=== PATIENT | female | born 1940 | race Caucasian/White ===

== ENCOUNTER 2017-05-01 20:20 | Emergency (ER) | payer MEDICARE, MEDICAID ==
[~2017-05-01] VITALS: Ht 162.6 cm; Wt 72.6 kg
[2017-05-01] MEDS ORDERED: PHEN100C11 (20:31)
[2017-05-01] MEDS ORDERED: BUDE10.2 (20:31)
[2017-05-01] MEDS ORDERED: METO-333 (20:31)
[2017-05-01] MEDS ORDERED: HYDR200T46 (20:31)
[2017-05-01] MEDS ORDERED: FAMO20TA5 (20:31)
[2017-05-01] MEDS ORDERED: FLUT16SP22 (20:31)
[2017-05-01] MEDS ORDERED: TIOT18CA2 (20:31)
[2017-05-01] MEDS ORDERED: CLON0.5T3 (20:31)
[2017-05-01] MEDS ORDERED: CITA20TA7 (20:31)
[2017-05-01] MEDS ORDERED: BUSP10TA95 (20:31)
[2017-05-01] MEDS ORDERED: METH2.5T (20:31)
--- NOTE | 2017-05-01 20:39 | ED Fall/Injury ---
General Chief Complaint: Trauma-Non Activation Stated Complaint: FALL Nursing Triage Note: FALL Source: patient, RN/MD (Leonie at [facility] [place]) Exam Limitations: no limitations History of Present Illness Time seen by provider: 20:39 Location Injury Occurred: HOME Allergies and Home Medications Home Medications Budesonide/Formoterol Fumarate 10.2 Gm Hfa.aer.ad, (Reported) Buspirone HCl 10 Mg Tablet, (Reported) Citalopram Hydrobromide 20 Mg Tablet, (Reported) Clonazepam 0.5 Mg Tablet, (Reported) Famotidine 20 Mg Tablet, (Reported) Fluticasone Propionate 16 Gm Durant.susp, (Reported) Hydroxychloroquine Sulfate 200 Mg Tablet, (Reported) Methotrexate Sodium 2.5 Mg Tablet, (Reported) Metoprolol Tartrate 25 Mg Tablet, (Reported) Phenytoin Sodium Extended 100 Mg Capsule, (Reported) Tiotropium [place] 1 Inh Aerp, (Reported) Past Bxfumlc-Tsbxma-Dzwgti Hx Patient Social History Alcohol Use: Denies Use Recreational Drug Use: No Smoking Status: Unknown if Ever Smoked 2nd Hand Smoke Exposure: No Recent Foreign Travel: No Contact w/Someone Who Travel: No Recent Infectious Disease Expo: No Recent Hopitalizations: No Immunizations Up To Date Tetanus Booster (TDap): Less than 5yrs Seasonal Allergies Seasonal Allergies: Yes Surgeries History of Surgeries: No (UNKNOWN) Respiratory History of Respiratory Disorde: Yes Respiratory Disorders: Asthma, COPD Cardiovascular History of Cardiac Disorders: Yes Cardiac Disorders: Hypertension Neurological History of Neurological Disord: Yes Genitourinary History of Genitourinary Disor: No Gastrointestinal History of Gastrointestinal Di: Yes Gastrointestinal Disorders: Gastroesophageal Reflux, Chronic Constipation Musculoskeletal History of Musculoskeletal Dis: Yes Musculoskeletal Disorders: Osteoporosis, Arthritis, Scoliosis Endocrine History of Endocrine Disorders: No HEENT History of HEENT Disorders: No Cancer History of Cancer: No Psychosocial History of Psychiatric Problem: Yes Behavioral Health Disorders: Anxiety, Depression Integumentary Skin/Integumentary Disorders: Psoriasis Physical Exam Vital Signs Vital Sign - Last 12Hours 05/01/17 20:32 Temp 98.1 Pulse 73 Resp 18 B/P (MAP) 129/84 Pulse Ox 94 O2 Delivery Nasal Cannula O2 Flow Rate 2.00 Capillary Refill : Less Than 3 Seconds Progress/Results/Core Measures Results/Orders My Orders Orders - NAMAN MALLORY Ct Head Wo (05/01/17 20:25) Vital Signs/I&O Vital Sign - Last 12Hours 05/01/17 20:32 Temp 98.1 Pulse 73 Resp 18 B/P (MAP) 129/84 Pulse Ox 94 O2 Delivery Nasal Cannula O2 Flow Rate 2.00 Blood Pressure Mean: 99 Diagnostic Imaging Diagonstic Imaging: CT Plain Films/CT/US/NM/MRI: head Comments CT HEAD WO PROCEDURE: CT head without contrast. TECHNIQUE: Multiple contiguous axial images were obtained through the brain without the use of intravenous contrast. INDICATION: Fall. Head injury. COMPARISON: None. FINDINGS: No intracranial hemorrhage, mass effect, hydrocephalus, or extra-axial fluid collections. Sdzophsx-xs-orsknnss generalized cerebral and cerebellar parenchymal volume loss. Chronic encephalomalacia in the right frontal and anterior temporal lobes. 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 No CT evidence of acute infarction. Right temporal craniotomy. No acute fractures. Mild mucosal thickening in the ethmoid sinuses. The mastoids are clear. IMPRESSION: No acute intracranial CT findings. Dictated on workstation # [id number] Reviewed: Reviewed by Me (radiology report reviewed by me) Departure Impression Impression: Primary Impression: Fall Disposition: 01 HOME, SELF-CARE Condition: Improved Departure-Patient Inst. Decision time for Depature: 21:22 Referrals: MARTINA CHAUDHRY MD Patient Instructions: Preventing Falls in the Older Adult Add. Discharge Instructions: All discharge instructions reviewed with patient and/or family. Voiced understanding. Continue usual home medications, diet, and activity. Ice pack for 20 minute intervals as needed for pain. I will see patient in one week for follow-up as an outpatient. Return to the emergency department immediately for worsened pain, changes in behavior, slurred speech, changes in vision, neck pain , back pain, numbness, weakness, chest pain, shortness of air, or any other concerns. NAMAN MALLORY May 01, 2017 20:39
--- NOTE | 2017-05-01 20:53 | Diagnostic Imaging Report ---
PROCEDURE: CT head without contrast. TECHNIQUE: Multiple contiguous axial images were obtained through the brain without the use of intravenous contrast. INDICATION: Fall. Head injury. COMPARISON: None. FINDINGS: No intracranial hemorrhage, mass effect, hydrocephalus, or extra-axial fluid collections. Ufoiqoea-ln-rzzrvuip generalized cerebral and cerebellar parenchymal volume loss. Chronic encephalomalacia in the right frontal and anterior temporal lobes. 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 No CT evidence of acute infarction. Right temporal craniotomy. No acute fractures. Mild mucosal thickening in the ethmoid sinuses. The mastoids are clear. IMPRESSION: No acute intracranial CT findings. Dictated by: Dictated on workstation # [id number]
[2017-05-01 22:15] VITALS: BP 121/78
== END 2017-05-01 22:15 | disposition home or self-care (01) ==
LOC: ER 20:25
DX: S09.90XA Unspecified injury of head, initial encounter (principal); F41.9 Anxiety disorder, unspecified; F32.9 Major depressive disorder, single episode, unspecified; K21.9 Gastro-esophageal reflux disease without esophagitis; K59.09 Other constipation; J44.9 Chronic obstructive pulmonary disease, unspecified; W19.XXXA Unspecified fall, initial encounter; Y92.009 Unspecified place in unspecified non-institutional (private) residence as the place of occurrence of the external cause
CPT/HCPCS: 70450; 99283